=== PATIENT | female | born 1960 | race Caucasian/White ===

== ENCOUNTER 2017-05-09 22:08 | Emergency (ER) | payer MEDICARE, OTHER ==
[~2017-05-09] VITALS: Ht 162.6 cm; Wt 65.0 kg
[2017-05-09 22:19] VITALS: BP 133/84; PULSE 89; RESP 18; TEMP 98.1; O2SAT 96
[2017-05-09] MEDS ORDERED: SODIUM CHLORIDE 0.9% FLUSH 10 ML FLUSH IVF PRN (22:30)
[2017-05-09] MEDS ORDERED: XANA1TAB2 PO (22:31)
[2017-05-09] MEDS ORDERED: PROZ40CA PO (22:31)
[2017-05-09] MEDS ORDERED: [UNRECOGNIZED DRUG - OTHER] PO (22:31)
--- NOTE | 2017-05-09 22:39 | PD ---
HPI Chief Complaint: Chest Pain Time Seen by Provider: 22:22 Travel History International Travel<30 days: No Contact w/Intl Traveler<30days: No Traveled to known affect area: No History of Present Illness HPI 56-year-old female with a history of COPD and 2 MIs presents to the emergency department via evac complaining of midsternal chest pain that radiates to the back for 4 days. States that the pain is intermittent and moderate to severe that increases with palpation of the chest wall. Patient denies nausea or vomiting. States she does feel more short of breath however, she does have COPD. EMS gave her 4 BASA prior to arrival today. Says today that she drank alcohol and smoked crack today. Says she normally does not smoke crack. States in addition, says she she did IV heroin 4 days ago when her pain started. Says she has a history of anxiety, depression, and she uses inhalers for her COPD. Denies fever, chills. States that she did see her street sprinkler in [place] years ago and revealed a normal stress test. [facility] Social History Tobacco Use: Yes Allergies-Medications (Allergen,Severity, Reaction): Coded Allergies: No Known Allergies (Unverified , 05/09/17) Reported Meds & Prescriptions Reported Meds & Active Scripts Active Reported [Tribilight] 500 Mg PO TID Prozac (Fluoxetine HCl) 40 Mg Cap 80 Mg PO DAILY Xanax (Alprazolam) 1 Mg Tab 1 Mg PO TID PRN Review of Systems Except as stated in HPI: all other systems reviewed are Neg Physical Exam Narrative GENERAL: WD, WN in mild distress, positive Raines's sign SKIN: Warm and dry. HEAD: Atraumatic. Normocephalic. EYES: Pupils equal and round. No scleral icterus. No injection or drainage. ENT: No nasal bleeding or discharge. Mucous membranes pink and moist. NECK: Trachea midline. No JVD. CARDIOVASCULAR: Regular rate and rhythm. RESPIRATORY: No accessory muscle use. Clear to auscultation. Breath sounds equal bilaterally. GASTROINTESTINAL: Abdomen soft, non-tender, nondistended. Hepatic and splenic margins not palpable. MUSCULOSKELETAL: Extremities without clubbing, cyanosis, or edema. No obvious deformities. TTP to anterior chest wall. NEUROLOGICAL: Awake and alert. No obvious cranial nerve deficits. Motor grossly within normal limits. Five out of 5 muscle strength in the arms and legs. Normal speech. PSYCHIATRIC: Appropriate mood and affect; insight and judgment normal. Data Data Last Documented VS Vital Signs Date Time Temp Pulse Resp B/P (MAP) Pulse Ox O2 Delivery O2 Flow Rate FiO2 05/10/17 07:43 05/10/17 07:28 95 18 95 Room Air 05/09/17 22:19 98.1 Orders Orders Electrocardiogram (05/09/17 22:26) Ckmb (Isoenzyme) Profile (05/09/17 22:26) Complete Blood Count With Diff (05/09/17 22:26) Comprehensive Metabolic Panel (05/09/17 22:26) Magnesium (Mg) (05/09/17 22:26) Prothrombin Time / Inr (Pt) (05/09/17 22:26) Act Partial Throm Time (Ptt) (05/09/17 22:26) Troponin I (05/09/17 22:26) Lipase (05/09/17 22:26) Chest, Single Ap (05/09/17 22:26) Ecg Monitoring (05/09/17 22:26) Bilateral Bp Monitoring (05/09/17 22:26) Iv Access Insert/Monitor (05/09/17 22:26) Oximetry (05/09/17 22:26) Sodium Chloride 0.9% Flush (Ns Flush) (05/09/17 22:30) Lactic Acid (05/09/17 22:26) Urinalysis - C+S If Indicated (05/09/17 22:26) Blood Culture (05/09/17 22:26) Drug Screen, Random Urine (05/09/17 22:35) Nitroglycerin 2% Oint (Nitroglycerin 2% (05/09/17 22:45) Lorazepam Inj (Ativan Inj) (05/09/17 22:45) Albuterol-Ipratropium Neb (Duoneb Neb) (05/09/17 22:45) Electrocardiogram (05/10/17 ) Tramadol (Ultram) (05/10/17 05:00) Ibuprofen (Motrin) (05/10/17 05:00) Ed Discharge Order (05/10/17 05:58) Labs Laboratory Tests Test 05/09/17 23:00 05/09/17 23:06 White Blood Count 5.2 TH/MM3 Red Blood Count 4.59 MIL/MM3 Hemoglobin 14.2 GM/DL Hematocrit 40.6 % Mean Corpuscular Volume 88.5 FL Mean Corpuscular Hemoglobin 30.9 PG Mean Corpuscular Hemoglobin Concent 34.9 % Red Cell Distribution Width 14.9 % Platelet Count 305 TH/MM3 Mean Platelet Volume 7.5 FL Neutrophils (%) (Auto) 45.2 % Lymphocytes (%) (Auto) 42.4 % Monocytes (%) (Auto) 5.9 % Eosinophils (%) (Auto) 2.0 % Basophils (%) (Auto) 4.5 % Neutrophils # (Auto) 2.4 TH/MM3 Lymphocytes # (Auto) 2.2 TH/MM3 Monocytes # (Auto) 0.3 TH/MM3 Eosinophils # (Auto) 0.1 TH/MM3 Basophils # (Auto) 0.2 TH/MM3 CBC Comment DIFF FINAL Differential Comment Prothrombin Time 10.6 SEC Prothromb Time International Ratio 1.0 RATIO Activated Partial Thromboplast Time 26.6 SEC Blood Urea Nitrogen 6 MG/DL Creatinine 0.49 MG/DL Random Glucose 88 MG/DL Total Protein 7.8 GM/DL Albumin 3.5 GM/DL Calcium Level 8.2 MG/DL Magnesium Level 2.2 MG/DL Alkaline Phosphatase 105 U/L Aspartate Amino Transf (AST/SGOT) 73 U/L Alanine Aminotransferase (ALT/SGPT) 94 U/L Total Bilirubin 0.3 MG/DL Sodium Level 146 MEQ/L Potassium Level 3.2 MEQ/L Chloride Level 111 MEQ/L Carbon Dioxide Level 25.8 MEQ/L Anion Gap 9 MEQ/L Estimat Glomerular Filtration Rate 131 ML/MIN Total Creatine Kinase 72 U/L Troponin I LESS THAN 0.02 NG/ML Lipase 264 U/L Lactic Acid Level 2.2 mmol/L MDM Medical Decision Making Medical Screen Exam Complete: Yes Emergency Medical Condition: Yes Differential Diagnosis STEMI, NSTEMI, endocarditis, pericarditis, atypical chest pain Narrative Course 56-year-old female with a history of COPD and 2 MIs presents to the emergency department via evac complaining of midsternal chest pain that radiates to the back for 4 days. States that the pain is intermittent and moderate to severe that increases with palpation of the chest wall. Patient denies nausea or vomiting. States she does feel more short of breath however, she does have COPD. EMS gave her 4 BASA prior to arrival today. Says today that she drank alcohol and smoked crack today. Says she normally does not smoke crack. States in addition, says she she did IV heroin 4 days ago when her pain started. Says she has a history of anxiety, depression, and she uses inhalers for her COPD. Denies fever, chills. States that she did see her street sprinkler in [place] years ago and revealed a normal stress test. Vital signs normal. Labs and imaging studies ordered. Please see Dr. Cruz's note for further information on this patient. Condition: Stable Claudia Justin May 09, 2017 22:39
[2017-05-09] MEDS ORDERED: LORazepam 2 MG/ML VIAL IV PUSH ONE (22:45)
[2017-05-09] MEDS ORDERED: NITROGLYCERIN 2% OINT 1 GM PACKET TOPICAL ONE (22:45)
[2017-05-09] MEDS: RESP: ALBUTEROL 2.5 MG/IPRATROPIUM 0.5 MG NEB (SCH) INH (22:49)
--- NOTE | 2017-05-09 23:03 | RADRPT ---
EXAM DATE/TIME: 05/09/2017 22:50 [facility] COMPARISON: No previous studies available for comparison. INDICATIONS : Chest pain. MEDICAL HISTORY : None. SURGICAL HISTORY : None. ENCOUNTER: Initial ACUITY: 2 days PAIN SCORE: 5/10 LOCATION: chest FINDINGS: A single view of the chest demonstrates the lungs to be symmetrically aerated without evidence of mas s, infiltrate or effusion. The cardiomediastinal contours are unremarkable. Osseous structures are intact. CONCLUSION: No acute disease. Rodney Jones MD on May 09, 2017 at 23:00 Board Certified Radiologist. This report was verified electronically.
[2017-05-09 23:31] LABS: ALBUMIN 3.5 GM/DL (3.4-5.0); ALT (GPT) 94 U/L (10-53); AST (GOT) 73 U/L (15-37); AUTOMATED NEUTROPHIL # 2.4 TH/MM3 (1.8-7.7); BASOPHIL # 0.2 TH/MM3 (0-0.2); BASOPHIL % 4.5 % (0.0-2.0); BICARBONATE 25.8 MEQ/L (21.0-32.0); BLOOD UREA NITROGEN 6 MG/DL (7-18); CALCIUM 8.2 MG/DL (8.5-10.1); CHLORIDE 111 MEQ/L (98-107); CREATININE 0.49 MG/DL (0.50-1.00); EOSINOPHIL # 0.1 TH/MM3 (0-0.4); GLOMERULAR FILTRATION RATE 131 ML/MIN (>89); GLUCOSE,RANDOM 88 MG/DL (74-106); HEMATOCRIT 40.6 % (35.0-46.0); HEMOGLOBIN 14.2 GM/DL (11.6-15.3); LYMPH % 42.4 % (9.0-44.0); LYMPHOCYTE # 2.2 TH/MM3 (1.0-4.8); MAGNESIUM 2.2 MG/DL (1.5-2.5); MEAN CELL VOLUME 88.5 FL (80.0-100.0); MEAN CORPUSCULAR HEMOGLOBIN 30.9 PG (27.0-34.0); MEAN CORPUSCULAR HGB CONC 34.9 % (32.0-36.0); MEAN PLATELET VOLUME 7.5 FL (7.0-11.0); MONO % 5.9 % (0.0-8.0); MONOCYTE # 0.3 TH/MM3 (0-0.9); NEUT % 45.2 % (16.0-70.0); PLATELET COUNT 305 TH/MM3 (150-450); RED BLOOD COUNT 4.59 MIL/MM3 (4.00-5.30); RED CELL DISTRIBUTION WIDTH 14.9 % (11.6-17.2); SODIUM (NA) 146 MEQ/L (136-145); WHITE BLOOD COUNT 5.2 TH/MM3 (4.0-11.0)
[2017-05-09 23:35] LABS: ALKALINE PHOSPHATASE 105 U/L (45-117); TOTAL BILIRUBIN ADULT 0.3 MG/DL (0.2-1.0); TOTAL PROTEIN 7.8 GM/DL (6.4-8.2); TROPONIN I LESS THAN 0.02 NG/ML (0.02-0.05)
[2017-05-09 23:36] VITALS: BP 133/80; PULSE 98; RESP 18; O2SAT 100
[2017-05-09 23:38] LABS: PROTHROMBIN TIME - PATIENT 10.6 SEC (9.8-11.6)
[2017-05-10 03:00] VITALS: BP 103/59; PULSE 100; RESP 18; O2SAT 100
[2017-05-10 04:00] VITALS: BP 123/77; PULSE 94; RESP 18; O2SAT 100
[2017-05-10 05:00] VITALS: BP 125/87; PULSE 96; RESP 18; O2SAT 95
[2017-05-10] MEDS ORDERED: IBUPROFEN 600 MG TAB PO ONE (05:00)
[2017-05-10] MEDS ORDERED: traMADol HCL 50 MG TAB PO ONE (05:00)
[2017-05-10 06:00] VITALS: BP 136/95; PULSE 94; RESP 18; O2SAT 100
--- NOTE | 2017-05-10 06:24 | PD ---
Physical Exam Date Seen by Provider: May 09, 2017 Time Seen by Provider: 23:55 Narrative Patient admits to using smoking crack cocaine and she had chest pain we ruled her out gave her Ativan nitroglycerin paste and observed her in the ER monitor her EKG is normal sinus rhythm 2 by 4 hours troponin is negative and she is discharged home follow-up as an outpatient Data Data Last Documented VS Vital Signs Date Time Temp Pulse Resp B/P (MAP) Pulse Ox O2 Delivery O2 Flow Rate FiO2 05/09/17 23:36 100 Room Air 05/09/17 23:36 98 18 05/09/17 22:19 98.1 Orders Orders Electrocardiogram (05/09/17 22:26) Ckmb (Isoenzyme) Profile (05/09/17 22:26) Complete Blood Count With Diff (05/09/17 22:26) Comprehensive Metabolic Panel (05/09/17 22:26) Magnesium (Mg) (05/09/17 22:26) Prothrombin Time / Inr (Pt) (05/09/17 22:26) Act Partial Throm Time (Ptt) (05/09/17 22:26) Troponin I (05/09/17 22:26) Lipase (05/09/17 22:26) Chest, Single Ap (05/09/17 22:26) Ecg Monitoring (05/09/17 22:26) Bilateral Bp Monitoring (05/09/17 22:26) Iv Access Insert/Monitor (05/09/17 22:26) Oximetry (05/09/17 22:26) Sodium Chloride 0.9% Flush (Ns Flush) (05/09/17 22:30) Lactic Acid (05/09/17 22:26) Urinalysis - C+S If Indicated (05/09/17 22:26) Blood Culture (05/09/17 22:26) Drug Screen, Random Urine (05/09/17 22:35) Nitroglycerin 2% Oint (Nitroglycerin 2% (05/09/17 22:45) Lorazepam Inj (Ativan Inj) (05/09/17 22:45) Albuterol-Ipratropium Neb (Duoneb Neb) (05/09/17 22:45) Electrocardiogram (05/10/17 ) Tramadol (Ultram) (05/10/17 05:00) Ibuprofen (Motrin) (05/10/17 05:00) Ed Discharge Order (05/10/17 05:58) Labs Laboratory Tests Test 05/09/17 23:00 05/09/17 23:06 White Blood Count 5.2 TH/MM3 Red Blood Count 4.59 MIL/MM3 Hemoglobin 14.2 GM/DL Hematocrit 40.6 % Mean Corpuscular Volume 88.5 FL Mean Corpuscular Hemoglobin 30.9 PG Mean Corpuscular Hemoglobin Concent 34.9 % Red Cell Distribution Width 14.9 % Platelet Count 305 TH/MM3 Mean Platelet Volume 7.5 FL Neutrophils (%) (Auto) 45.2 % Lymphocytes (%) (Auto) 42.4 % Monocytes (%) (Auto) 5.9 % Eosinophils (%) (Auto) 2.0 % Basophils (%) (Auto) 4.5 % Neutrophils # (Auto) 2.4 TH/MM3 Lymphocytes # (Auto) 2.2 TH/MM3 Monocytes # (Auto) 0.3 TH/MM3 Eosinophils # (Auto) 0.1 TH/MM3 Basophils # (Auto) 0.2 TH/MM3 CBC Comment DIFF FINAL Differential Comment Prothrombin Time 10.6 SEC Prothromb Time International Ratio 1.0 RATIO Activated Partial Thromboplast Time 26.6 SEC Blood Urea Nitrogen 6 MG/DL Creatinine 0.49 MG/DL Random Glucose 88 MG/DL Total Protein 7.8 GM/DL Albumin 3.5 GM/DL Calcium Level 8.2 MG/DL Magnesium Level 2.2 MG/DL Alkaline Phosphatase 105 U/L Aspartate Amino Transf (AST/SGOT) 73 U/L Alanine Aminotransferase (ALT/SGPT) 94 U/L Total Bilirubin 0.3 MG/DL Sodium Level 146 MEQ/L Potassium Level 3.2 MEQ/L Chloride Level 111 MEQ/L Carbon Dioxide Level 25.8 MEQ/L Anion Gap 9 MEQ/L Estimat Glomerular Filtration Rate 131 ML/MIN Total Creatine Kinase 72 U/L Troponin I LESS THAN 0.02 NG/ML Lipase 264 U/L Lactic Acid Level 2.2 mmol/L [facility] Medical Record Reviewed: Yes Supervised Visit with TIFFANY: Yes Differential Diagnosis Crack cocaine-induced chest pain and tachycardia versus anxiety versus is withdrawal from alcohol tachycardia versus idiopathic chest pain versus costochondritis versus GERD versus gastritis versus pancreatitis Narrative Course She was observed in the ER troponin is -2 EKGs in time by 4 hours are completely normal sinus rhythm with no ectopy and no ST elevations or depressions discharged home follow-up as an outpatient refraining from using street drugs Diagnosis Primary Impression: Chest pain, unspecified Qualified Codes: R07.9 - Chest pain, unspecified Patient Instructions: Cocaine Abuse (ED), General Instructions Disposition: 01 DISCHARGE HOME Condition: Stable Ruddy Cruz MD May 10, 2017 06:24
[2017-05-10 07:28] VITALS: BP 135/82; PULSE 95; RESP 18; O2SAT 95
--- NOTE | 2017-05-10 14:36 | EKG ---
Date Performed: 05/10/2017 Time Performed: 03:30:52 PTAGE: 56 years EKG: Sinus rhythm Borderline left atrial abnormality. Otherwise within normal abnormality. When compared to previous t racing, no significant change. NORMAL ECG PREVIOUS TRACING : 05/09/2017 23.21 DOCTOR: Chris Connolly Interpretating Date/Time 05/10/2017 14:38:10
--- NOTE | 2017-05-10 14:36 | EKG ---
Date Performed: 05/09/2017 Time Performed: 23:21:56 PTAGE: 56 years EKG: Sinus rhythm POSSIBLE LEFT ATRIAL ENLARGEMENT BORDERLINE ECG NO PREVIOUS TRACING DOCTOR: Chris Connolly Interpretating Date/Time 05/10/2017 14:37:36
== END 2017-05-10 07:44 | disposition home or self-care (01) ==
LOC: NEPC 22:08
DX: R07.9 Chest pain, unspecified (principal); F14.90 Cocaine use, unspecified, uncomplicated; J44.9 Chronic obstructive pulmonary disease, unspecified; F32.9 Major depressive disorder, single episode, unspecified; R94.31 Abnormal electrocardiogram [ECG] [EKG]; Z72.0 Tobacco use; Z79.899 Other long term (current) drug therapy
CPT/HCPCS: 71045; 80053; 82550; 83605; 83690; 83735; 84484; 85025; 85610; 85730; 87040; 93005; 94640; 94664; 96374; 99285; J2060